=== PATIENT | female | born 1980 | race Asian ===

== ENCOUNTER 2018-04-15 11:34 | Inpatient (IN) | payer SELFPAY ==
[~2018-04-15] VITALS: Ht 160 cm; Wt 64.9 kg
[2018-04-15] MEDS ORDERED: OXYTOCIN 20 UNITS in LACTATED RINGERS 1,000 ML IV SCH (12:54)
[2018-04-15] MEDS ORDERED: OXYTOCIN 10 UNITS/ML VIAL IM ONE (12:55)
[2018-04-15] MEDS ORDERED: PROMETHAZINE 25 MG/ML VIAL IVP PRN (12:55)
[2018-04-15] MEDS ORDERED: NALBUPHINE 10 MG/ML AMP IVP PRN (12:55)
[2018-04-15 13:59] LABS: BASOPHILS # (AUTO) 0.1 K/uL (0.00-0.22); BASOPHILS % (AUTO) 0.4 % (0.0-2.0); EOSINOPHILS % (AUTO) 0.2 % (0.0-4.0); HEMATOCRIT 40.4 % (36-48); HEMOGLOBIN 13.5 g/dL (12.0-16.0); LYMPHOCYTES # (AUTO) 1.6 K/uL (2.5-16.5); LYMPHOCYTES % (AUTO) 13.4 % (20.5-51.1); MEAN CORPUSCULAR HEMOGLOBIN 32 pg (27-31); MEAN CORPUSCULAR HGB CONC 33 g/dL (33-37); MEAN CORPUSCULAR VOLUME 94.8 fL (80-94); MONOCYTES # (AUTO) 0.7 K/uL (0.8-1.0); MONOCYTES % (AUTO) 5.6 % (1.7-9.3); NEUTROPHILS # (AUTO) 9.4 K/uL (1.8-7.7); NEUTROPHILS % (AUTO) 80.4 % (42.2-75.2); PLATELET COUNT (AUTO) 188 K/uL (140-450); RED BLOOD CELL COUNT(AUTO) 4.26 MIL/uL (4.20-5.40); RED CELL DISTRIBUTION WIDTH 13.6 % (11.6-13.7); WHITE BLOOD COUNT (AUTO) 11.7 K/uL (4.8-10.8)
[2018-04-15] MEDS ORDERED: PROMETHAZINE 25 MG/ML VIAL ONE (14:34)
[2018-04-15] MEDS ORDERED: NALBUPHINE 10 MG/ML AMP ONE ×2 (14:34→17:37)
[2018-04-15 14:45] VITALS: BP 145/86
[2018-04-15 15:06] LABS: CARBON DIOXIDE 21.8 mmol/L (21-32); CREATININE 0.7 mg/dL (0.6-1.3); POTASSIUM 3.8 mmol/L (3.5-5.1)
[2018-04-15 15:19] LABS: ALBUMIN 2.7 g/dL (3.4-5.0); TOTAL BILIRUBIN 0.3 mg/dL (0.0-1.0)
[2018-04-15 17:07] LABS: APPEARANCE,URINE CLEAR (CLEAR); BILIRUBIN,URINE NEGATIVE (NEGATIVE); BLOOD, URINE 1+ (NEGATIVE); COLOR,URINE YELLOW (YELLOW); LEUKOCYTE ESTERASE ,URINE NEGATIVE (NEGATIVE); NITRITE, URINE NEGATIVE (NEGATIVE); PH,URINE 5.5 (5.0-9.0); UGLUCOSE NEGATIVE (NEGATIVE)
[2018-04-15] MEDS ORDERED: BUPIVACAINE 0.125%/NS PREMIX 250 ML EPI SCH (17:30)
[2018-04-15 17:42] LABS: RBC,URINE 0-5 (RARE) /HPF (0-5); WBC,URINE NONE SEEN /HPF (0-5)
[2018-04-15] MEDS: LACTATED RINGERS 1,000 ML IV SCH ×2 (18:12→22:44)
[2018-04-15] MEDS ORDERED: AMPICILLIN 2,000 MG in NACL 0.9% 100 ML IV SCH (20:25)
[2018-04-15] MEDS ORDERED: AMPICILLIN 2,000 MG VIAL ONE (20:43)
[2018-04-15] MEDS ORDERED: CITRIC ACID/SODIUM CITRATE 30 ML UDC PO ONE (23:25)
[2018-04-16] MEDS ORDERED: AMPICILLIN 1,000 MG in NACL 0.9% 50 ML IV SCH ×2
[2018-04-16] MEDS ORDERED: TRIAMCINOLONE 10 MG/ML 5ML VIAL ONE (00:04)
[2018-04-16] MEDS ORDERED: OXYTOCIN 10 UNITS/ML VIAL ONE ×2 (00:04→02:06)
[2018-04-16] MEDS ORDERED: ceFAZolin 1,000 MG VIAL ONE (00:07)
[2018-04-16] MEDS ORDERED: CITRIC ACID/SODIUM CITRATE 30 ML UDC ONE (00:07)
[2018-04-16] MEDS ORDERED: SODIUM BICARBONATE 8.4% PFS 50 MEQ/50 ML SYR IVP ONE (00:11)
[2018-04-16] MEDS ORDERED: MORPHINE PRES FREE 10 MG/10 ML AMP IV ONE (00:11)
[2018-04-16] MEDS ORDERED: LIDOCAINE/EPI MPF 2%1:200000 10 ML VIAL INJ ONE (00:12)
[2018-04-16] MEDS: LACTATED RINGERS 1,000 ML IV SCH (00:14)
[2018-04-16] MEDS ORDERED: ceFAZolin 1,000 MG VIAL IVP ONE (00:15)
[2018-04-16] MEDS ORDERED: TEMAZEPAM 15 MG CAP PO PRN (00:45)
[2018-04-16] MEDS ORDERED: TRIMETHOBENZAMIDE 200 MG/2 ML SYR IM PRN (00:45)
[2018-04-16] MEDS ORDERED: HYDROcodone/APAP 5/325 MG 1 TAB TAB PO PRN (00:45)
[2018-04-16] MEDS ORDERED: NALOXONE 0.4 MG/ML VIAL IVP PRN ×3 (00:45)
[2018-04-16] MEDS ORDERED: oxyCODONE/APAP 5/325 MG 1 TAB TAB PO PRN (00:45)
[2018-04-16] MEDS ORDERED: NALBUPHINE 10 MG/ML AMP IVP PRN (00:45)
[2018-04-16] MEDS ORDERED: diphenhydrAMINE 50 MG/ML VIAL IVP PRN (00:45)
[2018-04-16] MEDS ORDERED: MEASLES, MUMPS, AND RUBELLA 1 VIAL SQVAC PRN (00:45)
[2018-04-16] MEDS ORDERED: OXYTOCIN 20 UNITS in LACTATED RINGERS 1,000 ML IV SCH (00:45)
[2018-04-16] MEDS ORDERED: SIMETHICONE 80 MG TAB.CHEW PO PRN (00:45)
[2018-04-16] MEDS ORDERED: KETOROLAC 60 MG/2 ML VIAL IM PRN (00:45)
[2018-04-16] MEDS ORDERED: METHYLERGONOVINE 0.2 MG/ML AMP IM PRN (00:45)
[2018-04-16] MEDS ORDERED: ONDANSETRON 4 MG/2 ML VIAL IVP PRN ×2 (00:45)
[2018-04-16] MEDS ORDERED: OXYTOCIN 20 UNITS/LR PREMIX 1,000 ML IV ONE (00:55)
[2018-04-16 02:25] LABS: CARBON DIOXIDE 21.9 mmol/L (21-32); CREATININE 0.8 mg/dL (0.6-1.3); POTASSIUM 3.9 mmol/L (3.5-5.1)
[2018-04-16 02:33] LABS: MAGNESIUM 1.3 mg/dL (1.8-2.4); PHOSPHORUS 2.9 mg/dL (2.5-4.9); TOTAL BILIRUBIN 0.2 mg/dL (0.0-1.0)
[2018-04-16 02:35] LABS: HEMOGLOBIN 11.8 g/dL (12.0-16.0); MEAN CORPUSCULAR HEMOGLOBIN 32 pg (27-31); MEAN CORPUSCULAR HGB CONC 35 g/dL (33-37); MEAN CORPUSCULAR VOLUME 93.2 fL (80-94); PLATELET COUNT (AUTO) 117 K/uL (140-450); RED BLOOD CELL COUNT(AUTO) 3.65 MIL/uL (4.20-5.40); RED CELL DISTRIBUTION WIDTH 12.9 % (11.6-13.7); WHITE BLOOD COUNT (AUTO) 13.7 K/uL (4.8-10.8)
[2018-04-16 02:51] LABS: LYMPHOCYTES % (MANUAL) 4 % (20-46); MONOCYTES % (MANUAL) 4 % (5-12)
--- NOTE | 2018-04-16 09:09 | NUR ---
PATIENT HAS BEEN SCREENED AND CATEGORIZED LOW NUTRITION RISK. PATIENT WILL BE SEEN WITHIN 7 DAYS OF ADMISSION. 04/21/[address]
[2018-04-16] MEDS ORDERED: LACTATED RINGERS 1,000 ML IV SCH (10:10)
[2018-04-16] MEDS: OXYTOCIN 20 UNITS in LACTATED RINGERS 1,000 ML IV SCH ×2 (12:24→19:19)
[2018-04-16] MEDS ORDERED: OXYTOCIN 10 UNITS/ML VIAL IV SCH (13:00)
[2018-04-16] MEDS ORDERED: OXYTOCIN 10 UNITS/ML VIAL IM SCH (13:00)
[2018-04-16] MEDS: IBUPROFEN 800 MG TAB PO PRN (19:48)
[2018-04-16] MEDS: DOCUSATE SOD/SENNA 50/8.6 MG 1 TAB PO SCH (21:00)
[2018-04-17 06:49] LABS: BASOPHILS # (AUTO) 0.1 K/uL (0.00-0.22); BASOPHILS % (AUTO) 0.4 % (0.0-2.0); EOSINOPHILS % (AUTO) 0.2 % (0.0-4.0); HEMATOCRIT 34.2 % (36-48); HEMOGLOBIN 11.4 g/dL (12.0-16.0); LYMPHOCYTES % (AUTO) 6.4 % (20.5-51.1); MEAN CORPUSCULAR HEMOGLOBIN 32 pg (27-31); MEAN CORPUSCULAR HGB CONC 33 g/dL (33-37); MEAN CORPUSCULAR VOLUME 96.1 fL (80-94); MONOCYTES # (AUTO) 0.6 K/uL (0.8-1.0); MONOCYTES % (AUTO) 4.1 % (1.7-9.3); NEUTROPHILS # (AUTO) 13.7 K/uL (1.8-7.7); NEUTROPHILS % (AUTO) 88.9 % (42.2-75.2); PLATELET COUNT (AUTO) 137 K/uL (140-450); RED BLOOD CELL COUNT(AUTO) 3.56 MIL/uL (4.20-5.40); RED CELL DISTRIBUTION WIDTH 13.8 % (11.6-13.7); WHITE BLOOD COUNT (AUTO) 15.5 K/uL (4.8-10.8)
[2018-04-17] MEDS: DOCUSATE SOD/SENNA 50/8.6 MG 1 TAB PO SCH (20:55)
[2018-04-17] MEDS: IBUPROFEN 800 MG TAB PO PRN (22:32)
== END 2018-04-19 13:40 | disposition home or self-care (01) | DRG 766 ==
LOC: MLD 11:34 → OBSVTOIN 11:34 → INTOOBSV 11:34 → OBSVTOIN 12:57 → INTOOBSV 12:57 → MFCC 04-16 03:07
PROVIDERS: ADMIT Obstetrics & Gynecology; ATTEND Obstetrics & Gynecology
PROC: 10D00Z1 Extraction of Products of Conception, Low, Open Approach (ICD-10-PCS; principal; 2018-04-16)
PROC: 3E0234Z Introduction of Serum, Toxoid and Vaccine into Muscle, Percutaneous Approach (ICD-10-PCS; 2018-04-17)
DX: O76 Abnormality in fetal heart rate and rhythm complicating labor and delivery (principal); Z23 Encounter for immunization; Z37.0 Single live birth; Z3A.38 38 weeks gestation of pregnancy
CPT/HCPCS: 36415; 51702; 80053; 81001; 83735; 84100; 85025; 86592; 86886; 86900; 86901; 90715; J0290; J0690; J2001; J2270; J2300; J2550; J2590; J3301; J3490; J7060; J7120